=== PATIENT | female | born 1965 | race Native Hawaiian/Other Pacific Islander ===

== ENCOUNTER 2017-12-08 14:10 | Emergency (ER) | payer OTHER ==
[2017-12-08 14:23] VITALS: BP 109/69; PULSE 84; RESP 16; TEMP 98.5; O2SAT 99
--- NOTE | 2017-12-08 14:33 | ED PDOC ---
Lower Extremity Pain/Injury Time Seen by Provider: 12/08/17 14:25 Chief Complaint (Nursing): Lower Extremity Problem/Injury Chief Complaint (Provider): left ankle injury History Per: Patient History/Exam Limitations: no limitations Current Symptoms Are (Timing): Still Present Additional Complaint(s): 51 year old female with no pertinent past medical history presents to the ED with complaints of left ankle pain status post a fall that occurred last night. Patient reports that she was walking last night, and tripped and fell, which caused pain and swelling to her left ankle. Patient reports pain with bearing weight on left ankle. Patient reports taking tylenol with no relief prior to arrival. No head injury or LOC sustained as a result of fall yesterday. PMD: Denisa ADORNO - in [facility] - Ankle/Foot Description Of Injury: Fell (left ankle) Past Medical History Reviewed: Historical Data, Nursing Documentation, Vital Signs Vital Signs: Last Vital Signs Temp 98.5 F 12/08/17 14:21 Pulse 84 12/08/17 14:21 Resp 16 12/08/17 14:21 BP 109/69 12/08/17 14:21 Pulse Ox 99 12/08/17 14:21 - Medical History PMH: No Chronic Diseases - Surgical History Other surgeries: fibroid removal x 2 - Family History Family History: States: No Known Family Hx - Living Arrangements Living Arrangements: With Family - Social History Current smoker - smoking cessation education provided: No Alcohol: None Drugs: Denies - Allergies Allergies/Adverse Reactions: Allergies Allergy/AdvReac Type Severity Reaction Status Date / Time No Known Allergies Allergy Verified 12/08/17 14:21 Wells Criteria for PE - Wells Criteria for Pulmonary Embolism Clinical Signs and Symptoms of DVT: No P.E is #1 Diagnosis, or Equally Likely: No Heart Rate >100: No Immobilization at least 3 days;Surgery previous 4 weeks: No Previous, objectively diagnosed PE or DVT: No Hemoptysis: No Malignancy w/treatment within 6 months, or palliative: No Total Score: 0 Review of Systems ROS Statement: Except As Marked, All Systems Reviewed And Found Negative Musculoskeletal: Positive for: Other (left ankle pain and swelling) Physical Exam - Reviewed Nursing Documentation Reviewed: Yes Vital Signs Reviewed: Yes - Physical Exam Appears: Positive for: Well, Non-toxic, No Acute Distress Head Exam: Positive for: ATRAUMATIC, NORMOCEPHALIC Skin: Positive for: Normal Color. Negative for: Rash Eye Exam: Positive for: Normal appearance Extremity: Positive for: Tenderness (tenderness to left lateral malleoulus), Swelling (to left lateral malleolus) Neurologic/Psych: Positive for: Alert, Oriented (3x) - ECG O2 Sat by Pulse Oximetry: 99 (RA) Pulse Ox Interpretation: Normal - Other Rad Left ankle x-ray X-Ray: Interpreted by Me, Viewed By Me X-Ray Interpretation: no fx, no dis Medical Decision Making Medical Decision Makin:25 Initial impression: 51 year old female with a left ankle injury Initial plan: * XRay ankle left 3 views Patient declines pain medications in ED Patient is aware of diagnostic testing results, all questions answered. Crutches declined, see procedure note. Patient was referred to with on-call for follow-up as needed. Scribe Attestation: Documented by Gianna Hurtado, acting as a scribe for Radha Carlton PA-C. Provider Scribe Attestation: All medical record entries made by the Scribe were at my direction and personally dictated by me. I have reviewed the chart and agree that the record accurately reflects my personal performance of the history, physical exam, medical decision making, and the department course for this patient. I have also personally directed, reviewed, and agree with the discharge instructions and disposition. Procedures - Splinting Location: Left ankle Pre-Made Type: osmany wrap, aircast Pre-Proc Neuro Vasc Exam: normal Post-Proc Neuro Vasc Exam: normal Disposition - Clinical Impression Clinical Impression: Left ankle sprain - Patient ED Disposition Is Patient to be Admitted: No Counseled Patient/Family Regarding: Studies Performed, Diagnosis, Need For Followup - Disposition Referrals: Henrry Perez MD [Staff Provider] - Disposition: Routine/Home Disposition Time: 15:01 Condition: STABLE Additional Instructions: Ice, rest and elevate affected area as often as possible. Take 3 advil every 6 hrs for pain and swelling. If symptoms persist, follow up with orthopedist. Instructions: Ankle Sprain (DC) Forms: [employer] (Maori)
--- NOTE | 2017-12-08 22:13 | RAD ---
Date of service: 12/08/2017 PROCEDURE: Left Ankle Radiographs. HISTORY: trauma COMPARISON: None FINDINGS: BONES: Normal. No fracture. JOINTS: Normal. No osteoarthritis. Ankle mortise maintained. Talar dome intact SOFT TISSUES: Normal. OTHER FINDINGS: None. IMPRESSION: No evidence of acute fracture or dislocation.
== END 2017-12-08 15:21 | disposition home or self-care (01) ==
LOC: H.ER 14:10
DX: S93.402A Sprain of unspecified ligament of left ankle, initial encounter (principal); W01.0XXA Fall on same level from slipping, tripping and stumbling without subsequent striking against object, initial encounter